=== PATIENT | male | born 1955 | race Hispanic/Latino ===

== ENCOUNTER → 2019-08-21 | Outpatient (CLI) | payer OTHER ==
--- NOTE | 2019-08-21 12:03 | Diagnostic Imaging Report ---
EXAMINATION: CHEST 2 VIEWS INDICATION: Pre-operative COMPARISON: None FINDINGS: LINES/TUBES:None LUNGS:The lungs are well-inflated. No focal consolidation or pulmonary edema. PLEURA:No pleural effusion or pneumothorax. MEDIASTINUM:The cardiomediastinal silhouette appears normal in size and shape. There is asymmetric widening of the right paratracheal soft tissues. BONES/SOFT TISSUES:No acute osseous injury. ABDOMEN:No free air under the diaphragm. IMPRESSION: No focal pneumonia or pulmonary edema. Asymmetric widening of the right paratracheal soft tissues, which may represent prominent mediastinal fat however underlying mass lesion could also have this appearance. Recommend chest CT for further evaluation on a nonurgent basis. Signed by: Katerina Howard MD on 08/21/2019 12:00 PM
== END ==
LOC: RAD 10:46
PROVIDERS: ATTEND Family Medicine
DX: Z01.818 Encounter for other preprocedural examination (principal); G56.01 Carpal tunnel syndrome, right upper limb
CPT/HCPCS: 71046; 93005

== ENCOUNTER 2025-08-03 20:39 | Emergency (ER) | payer MEDICARE, OTHER ==
[~2025-08-03] VITALS: Ht 165.1 cm; Wt 77.1 kg
[2025-08-03 21:12] LABS: BASOPHILS % 0.7 % (0.0-1.0); EOSINOPHILS % 5.5 % (0.0-6.0); LYMPHOCYTES % 41.9 % (18.0-39.1); MONOCYTES % 11.2 % (4.4-11.3); NEUTROPHILS % 40.5 % (38.7-80.0); RED CELL DISTRIBUTION WIDTH 13.1 % (11.7-14.4)
[2025-08-03 21:42] LABS: EST GLOMERULAR FILTRATION RATE 55.0 ML/MIN (>=60)
[2025-08-03 22:45] VITALS: PULSE 51; RESP 14; TEMP 97.7
[2025-08-03 22:46] VITALS: BP 139/64; PULSE 51; RESP 14; TEMP 97.7; O2SAT 99
== END 2025-08-03 23:01 | disposition home or self-care (01) ==
LOC: ER 21:00
DX: R51.9 Headache, unspecified (principal); I10 Essential (primary) hypertension; R10.13 Epigastric pain; K21.9 Gastro-esophageal reflux disease without esophagitis; M54.2 Cervicalgia; G89.29 Other chronic pain; R94.31 Abnormal electrocardiogram [ECG] [EKG]
CPT/HCPCS: 36415; 70450; 71045; 80053; 84484; 85025; 93005; 99284